=== PATIENT | female | born 2000 | race Caucasian/White ===

== ENCOUNTER 2021-03-16 07:47 | Day surgery (SDC) | payer OTHER ==
[~2021-03-16] VITALS: Ht 175.3 cm; Wt 66.6 kg
--- NOTE | 2021-03-16 10:45 | NUR ---
03/16/21 1045 Micaela Shah PT URINE TEST TOO DILUTE. BLOOD TEST SENT TO LAB. RESULTS BACK POSITIVE. DR LU NOTIFIED. PT NOTIFIED, PROCEDURE CANCELLED D/T THIS.
== END 2021-03-16 09:40 | disposition home or self-care (01) ==
LOC: ORSCSDS 07:47
DX: K30 Functional dyspepsia (principal); R10.11 Right upper quadrant pain; Z53.9 Procedure and treatment not carried out, unspecified reason
CPT/HCPCS: 84703; J2704; J7120